=== PATIENT | female | born 1950 | race Two or more races ===

== ENCOUNTER 2024-11-24 17:09 | Emergency (ER) | payer MEDICARE, MEDICAID, SELFPAY ==
[2024-11-24 17:20] VITALS: BP 157/79; PULSE 97; RESP 18; TEMP 36.7; O2SAT 97
[2024-11-24 17:22] VITALS: PULSE 92; RESP 16; O2SAT 99
--- NOTE | 2024-11-24 17:43 | PC.NURSE ---
Patient to er via ems with daughter at bedside with c/o syncopal episode for approx. 2-3min. while walking to the bathroom, no injury, family assisted patient to the floor. Per daughter at bedside states patient has h/o dementia and does not talk very much, usually says yes or no. Per daughter patient acting like her normal self at this time, however, legs are shaking more than usual. Patient making eye contact, shakes her head no when asking her if she is having pain, skin warm dry and pink. Patient awaiting to be seen by er provider. Call light within reach.
--- NOTE | 2024-11-24 17:44 | EKG_ITS ---
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
--- NOTE | 2024-11-24 17:45 | XR_ITS ---
Examination: AP chest single view Technique: AP sitting portable chest single view Date and time: November 24, 2024, 1735 hrs. Indications: Weakness today. Findings: Normal heart size Reduced inspiratory effort. Mild to moderate vascular congestion. No lobar pneumonia or pulmonary edema. Prominent osteopenia Impression: Mild to moderate vascular congestion
--- NOTE | 2024-11-24 17:46 | PD.EDRME ---
Rapid Medical Screening Exam RME Arrival date/time: 11/24/24 17:09 Chief Complaint: Syncope / Near Syncope Vital signs: Vital Signs Temperature 98.0 F 11/24/24 17:20 Pulse Rate 97 11/24/24 17:20 Respiratory Rate 18 11/24/24 17:20 Blood Pressure 157/79 H 11/24/24 17:20 Pulse Oximetry (%) 97 11/24/24 17:20 Oxygen Delivery Method Room Air 11/24/24 17:20 Vital signs reviewed by provider: Yes RME Narrative: Patient is a 73-year-old female into the emergency department after having felt lightheaded and felt like she was bit faint. Patient has a history of schizophrenia, selective mutism, hypertension. Patient baseline GCS is 14. Ambulates without assistance. Per family she was out in the sun today, when she came in she almost passed out. Denies any chest pain dysuria hematuria melena or bloody stools. Patient does endorse abdominal pain. Denies any nausea or vomiting. Patient does not have any allergies to medications.
--- NOTE | 2024-11-24 17:47 | XR_ITS ---
Examination: CT abdomen with intravenous contrast CT pelvis with intravenous contrast 2-D coronal reconstructions 2-D sagittal reconstructions Date and time of exam:April 26 70,025, 1954 hrs. Indications: Onset generalized abdominal pain today. CTDI: vol (mGy) 0.22 DLP: (mGycm) 321 Technique: Multiple axial sections of the abdomen and pelvis have been obtained. 64 slice high-resolution scanner used. 3 mm axial sections have been obtained, post intravenous injection 60 cc [id number] 2-D sagittal, coronal reconstructions obtained. Low dose protocols were performed. One or more of the following dose reduction techniques were used; automated exposure control, adjustment of the mA and/or KV according to patient size, use of iterative reconstruction technique. Findings: No focal liver or splenic lesions Contracted gallbladder, mild thickening of the gallbladder wall No pancreatic or adrenal mass Benign right renal cyst. No hydronephrosis renal or ureteral calculi No pericecal inflammatory change Mild diffuse wall thickening involving the colon Colonic diverticulosis Atrophic uterus Intact urinary bladder Severe osteopenia Chronic osteoporotic compression T12 Impression: Mild thickening of the gallbladder wall, recommend gallbladder sonography follow-up Diffuse mild hyperemia and wall thickening of the colon, nonspecific colitis pattern No bowel obstruction, negative for diverticulitis. Possibility probably benign chemotherapy probably mildly
[2024-11-24 17:53] VITALS: BMI 23.8
[2024-11-24 18:17] LABS: Basophils # (Auto) 0.1 Thou/mm3 (0.0-0.2); Basophils % (Auto) 0 % (0-2.5); Eosinophils # (Auto) 0.0 Thou/mm3 (0.0-0.5); Eosinophils % (Auto) 0 % (0-10); Hematocrit 35.6 % (36.0-46.0); Hemoglobin 12.1 g/dL (12.0-16.0); Immature Granulocytes Auto 0.05 Thou/mm3 (0.00-0.00); Lymphocytes # (Auto) 1.9 Thou/mm3 (1.0-4.8); Lymphocytes % (Auto) 15 % (10-50); Mean Corpuscular HGB Conc 34.0 g/dl (31.0-37.0); Mean Corpuscular Hemoglobin 29.4 pg (25.0-35.0); Mean Corpuscular Volume 87 fL (80-100); Monocytes # (Auto) 1.0 Thou/mm3 (0.0-0.8); Monocytes % (Auto) 8 % (0-12); Neutrophils # (Auto) 9.5 Thou/mm3 (1.8-7.7); Neutrophils % (Auto) 77 % (37-80); Nucleated Red Blood Cell # 0.00 Thou/mm3 (0.00-0.00); Nucleated Red Blood Cell % 0 /100 WBC (0); Platelet Count 224 Thou/mm3 (140-440); RDW Standard Deviation 45.2 fL (36.4-46.3); Red Blood Count 4.11 Miln/mm3 (4.00-5.20); White Blood Count 12.5 Thou/mm3 (3.6-11.0)
[2024-11-24] MEDS: RINGERS LACTATED 500 ML 500 ML IV (18:25)
[2024-11-24 18:31] LABS: INR 1.0 (0.9-1.3); Prothrombin Time 11.1 Seconds (9.0-12.2)
[2024-11-24 18:37] LABS: Alanine Aminotransferase 11 U/L (10-49); Albumin, Serum 4.5 gm/dL (3.4-4.8); Albumin/Globulin Ratio 1.6 (1.2-2.2); Alkaline Phosphatase 68 U/L (46-116); Anion Gap 14 (7-16); Aspartate Amino Transferase 12 U/L (0-34); BUN/Creatinine Ratio 16 Ratio (12-20); Bilirubin,Total 0.5 mg/dL (0.3-1.2); Blood Urea Nitrogen 13 mg/dL (9-23); Calcium 10.2 mg/dL (8.3-10.6); Calcium (Corrected) 10.2 mg/dL (8.5-10.1); Carbon Dioxide 20.1 mMol/L (20.0-31.0); Chloride 107 mMol/L (98-107); Creatine Kinase 25 U/L (34-171); Creatinine (Component) 0.8 mg/dL (0.6-1.3); Estimated Creatinine Clearance 46.7 mL/min (>60); Globulin 2.8 gm/dL (2.3-3.5); Glucose 225 mg/dL (74-106); Osmolality,Calculated 288 (275-295); Potassium 3.3 mMol/L (3.4-5.1); Sodium 141 mMol/L (136-145); Total Protein 7.3 gm/dL (5.7-8.2); Troponin I < 0.020 ng/mL (0.0-0.045); eGFR > 60 See Note
--- NOTE | 2024-11-24 19:08 | EDNOTE_ITS ---
ED Syncope RME/HPI General Chief Complaint: Syncope / Near Syncope Stated Complaint: SYNCOPE Time Seen by Provider: 11/24/24 19:01 Arrival date/time: 11/24/24 17:09 RME / HPI RME / HPI narrative: Patient is a 73-year-old female into the emergency department after having felt lightheaded and felt like she was bit faint. Patient has a history of schizophrenia, selective mutism, hypertension. Patient baseline GCS is 14. Ambulates without assistance. Per family she was out in the sun today, when she came in she almost passed out. Denies any chest pain dysuria hematuria melena or bloody stools. Patient does endorse abdominal pain. Denies any nausea or vomiting. Patient does not have any allergies to medications. DR. LEE MAIN ED EVALUATION: 73 y/o female with Hx of Schizophrenia, Selective Mutism, HTN, and Type II DM presents with feeling faint and cool, clammy skin x 4 hours ago. Patient had spent some time outside under the patio, then when going back inside to use the restroom before her nap, daughter saw patient faint. Denies chest pain and headache. No other complaints. Related Data Allergies Allergy/AdvReac Type Severity Reaction Status Date / Time No Known Allergies Allergy Verified 11/24/24 18:18 Review of Systems Review of Systems Systems Reviewed: All systems reviewed, normal except as documented Past Medical History Past Medical History NEUROLOGIC: Positive Dementia CARDIAC: Positive Hypercholesterolemia and Hypertension ENDOCRINE: Positive Diabetes Mellitus Type 2 PSYCHO/SOCIAL: Positive Schizophrenia ED Exam Narrative Physical exam: Generally patient is alert and in no obvious distress, heart regular rate and rhythm, lungs clear to auscultation equal bilaterally, abdomen soft bowel sounds present nondistended nontender, neurologic exam showed no focal motor deficits. Slight tremor which is normal for the patient. She obeys commands without difficulty., Neck no bruits, skin is warm pale and dry Course Course Course Narrative: CXR was ordered for determining the etiology of shortness of breath. Quality Measures none Orders Category Date Time Status CT Screening NOW Care 11/24/24 17:47 Active EKG (ED ONLY) *Do not use* NOW Care 11/24/24 17:44 Completed IV [Insert IV] NOW Care 11/24/24 18:[address] abdomen pelvis w con Stat Exams 11/24/24 17:47 Ordered CXR [XR chest 1V] Stat Exams 11/24/24 17:45 Completed EKG (ED Only) Stat Exams 11/24/24 17:44 Draft CBC Stat Lab 11/24/24 18:09 Completed CK [Creatine Kinase] Stat Lab 11/24/24 18:09 Completed CMP [Comprehensive Metabolic Panel] Stat Lab 11/24/24 18:09 Completed PT [Prothrombin Time with INR] Stat Lab 11/24/24 18:09 Completed Troponin I Stat Lab 11/24/24 18:09 Completed UA, C/S IF [Urinalysis, C/S if Indicated] Stat Lab 11/24/24 17:45 Ordered Ringers Lactated 500 ml [Lactated Ringers] 500 ml Med 11/24/24 17:45 Discontinued IV 500 mls/hr Vital Signs Vital signs: Vital Signs Temperature 98.0 F 11/24/24 17:20 Pulse Rate 97 11/24/24 17:20 Respiratory Rate 18 11/24/24 17:20 Blood Pressure 157/79 H 11/24/24 17:20 Pulse Oximetry (%) 97 11/24/24 17:20 Oxygen Delivery Method Room Air 11/24/24 17:20 Syncope MDM Narrative MDM Narrative:: Scribe Attestation: IGuillermina, am scribing for and in the presence of Dr. Lee. Provider Notation: Although this document has been carefully reviewed, there may still be some phonetic and other typographical errors. These errors are purely grammatical due to imperfections in the software program and should not be construed in any way to compromise the substance of the patient's medical care during this visit. I interpreted all labs. There was no acute abnormality. EKG is normal sinus rhythm without ectopy or ischemic change. Patient feels well with stable vital signs and has no complaints at this time. This most likely was due to the fact that the patient was out in the heat today and felt faint. She did not lose consciousness. Patient appears stable for discharge at this time. Patient data External records reviewed:: [facility] previous records (No prior ED records available for review.) Clinical information provided by:: family (Daughter) Social determinants that could affect healthcare access:: none Patient has the following chronic illnesses:: Schizophrenia, Dementia, Hypercholesterolemia, Hypertension, Diabetes Mellitus Type 2 How is presenting disease/condition affected by chronic disease/condition?: exacerbated by Evaluation data The following diagnostics were reviewed and interpreted by me:: lab results, radiology exam(s) and EKG tracing(s) Lab and/or radiology exams considered but not ordered:: None Interpretation Summary: RADIOLOGY Chest X-Ray: Findings: Normal heart size Reduced inspiratory effort. Mild to moderate vascular congestion. No lobar pneumonia or pulmonary edema. Prominent osteopenia Impression: Mild to moderate vascular congestion Abdomen/Pelvis CT: Pending official radiology report. Medications / Prescriptions Medications or Prescriptions considered but not ordered:: None Medication administrations:: Medication Administration History Discontinued Medications Lactated Ringer's (Lactated Ringers) 500 mls @ 500 mls/hr IV .Q1H ONE Stop: 11/24/24 18:44 Last Admin: 11/24/24 18:25 Dose: 500 mls/hr Documented By: KM See above if any Consultations Consultation(s) initiated? (list below): No Diagnosis Syncope Differential Diagnosis: syncope due to orthostatic hypotension, vasovagal syncope, complete atrioventricular block, subarachnoid hemorrhage, pulmonary embolism and dehydration Most likely diagnosis given after review of the tests above:: None Admission Indicated Admission indicated?: not indicated Explain why admission is indicated or not indicated:: Patient does not meet admission criteria Admission Request Was there a request for admission?: No Disposition Plan Disposition Plan: Discharge Discharge Attestation Discharge Attestation: The patient and all family members were given an opportunity to ask questions and understood the discharge instructions. Discharge instructions specifically effects, indications for sooner follow up or return to the emergency department, and the expected course of current diagnosis. Patient condition: Stable Discharge Plan Plan Patient Disposition: HOME (Self Care) Prescriptions/Referrals Referrals: No Primary/Family,Physician [Primary Care Provider] - In 1 week Problem List Clinical Impression: Heat effect Patient/Caregiver Discharge Instructions Education Materials: First Aid: Heat Exposure, Understanding Heat Stress Additional Instructions: Keep well-hydrated and in a cool environment. Follow-up with your doctor. Return to ER as needed or if condition worsens. Print Language: Bel[place]ian Stand Alone Forms: [employer] Award Info., Patient Portal Info Letter
[2024-11-24 19:26] VITALS: BP 157/88; PULSE 97; RESP 20; TEMP 36.7; O2SAT 97
[2024-11-24 20:52] VITALS: BP 157/84; PULSE 97; RESP 20; TEMP 36.7; O2SAT 98
[2024-11-24 20:57] LABS: Collection Type, Urine Catheter
[2024-11-24 21:10] LABS: Bacteria,Urine 4+; Bilirubin,Urine Negative (Negative); Blood,Urine Negative (Negative); Clarity,Urine Clear (Clear/Hazy); Color,Urine Lt-Yellow (Lt Yel-Yel); Glucose, Urine Negative (Negative); Hyaline Casts,Urine < 1 /hpf (0-1); Ketones,Urine Negative (Negative); Leukocyte Esterase,Urine Positive (Negative); Nitrite,Urine Negative (Negative); PH,Urine 6.0 (5.0-7.0); Protein,Urine Negative (Neg - Trace); RBC,Urine 2 /hpf (0-3); Specific Gravity,Urine 1.034 (1.001-1.035); Squamous Epithelial Cell,Urine < 1 /hpf (0-5); Urobilinogen,Urine Negative mg/dL (0.0-1.0); WBC,Urine 47 /hpf (0-5)
[2024-11-24 21:16] LABS: Culture Indicated,Urine Yes
== END 2024-11-24 21:25 | disposition home or self-care (01) ==
PROVIDERS: Emergency Medicine; Emergency Provider Emergency Medicine
DX: T67.9XXA Effect of heat and light, unspecified, initial encounter (principal); X30.XXXA Exposure to excessive natural heat, initial encounter; F20.9 Schizophrenia, unspecified; I10 Essential (primary) hypertension; E11.9 Type 2 diabetes mellitus without complications
CPT/HCPCS: 36415; 71045; 74177; 80053; 81001; 82550; 84484; 85025; 85610; 87077; 87086; 87186; 93005; 96360; 96361; 99284; A4649; J7120; Q9967